=== PATIENT | female | born 1935 | race Caucasian/White ===

== ENCOUNTER 2021-05-30 12:37 | Emergency (ER) | payer OTHER, MEDICARE ==
[2021-05-30] MEDS ORDERED: LIDOCAINE VISCOUS 2% SOLN 15 ML UDC ONE (14:54)
[2021-05-30] MEDS ORDERED: TRAMADOL HCL 50 MG TAB ONE (14:58)
--- NOTE | 2021-05-30 15:43 | ER ---
Nurse's Notes [facility] Name: Sherrie Cespedes Age: 86 yrs Sex: Female : 1935 Arrival Date: 05/30/2021 Time: 12:40 Bed 9 Private MD: Diagnosis: Skintear to left izaguirre Presentation: 05/30 13:49 Chief complaint: Patient states: Slipped off step of a curing pickling packer which caused the step to ss skin the top of her izaguirre. No active bleeding noted at this time. Coronavirus screen: Client denies travel out of the [place] in the last 14 days. Ebola Screen: Patient denies exposure to infectious person. Patient denies travel to an Ebola-affected area in the 21 days before illness onset. Complicating Factors: There are no complicating factors for this patient. Initial Sepsis Screen: Does the patient meet any 2 criteria? No. Patient's initial sepsis screen is negative. Does the patient have a suspected source of infection? No. Patient's initial sepsis screen is negative. Risk Assessment: Do you want to hurt yourself or someone else? Patient reports no desire to harm self or others. Onset of symptoms was May 30, 2021. 13:49 Method Of Arrival: Wheelchair ss 13:49 Acuity: ANDRIY 2 ss Historical: - Allergies: 13:51 No Known Allergies; ss - PMHx: 13:51 Hypertensive disorder; ss - Immunization history:: Client reports receiving the 2nd dose of the Covid vaccine, Last tetanus immunization: up to date. - Social history:: Smoking status: Patient/guardian denies using tobacco, the patient reports quitting approximately 30 years ago. Screenin:04 Abuse screen: Denies threats or abuse. Denies injuries from another. Nutritional jl7 screening: No deficits noted. Tuberculosis screening: Never had TB. Assessment: 15:00 Injury Description: Large, 10 cm skin tear noted to L izaguirre. No active bleeding noted at jl7 this time. 15:01 General: Appears in no apparent distress. comfortable, Behavior is calm, cooperative. jl7 Pain: Complains of pain in left izaguirre Pain currently is 10 out of 10 on a pain scale. Quality of pain is described as burning, tender, Pain began 2 hours ago. Is continuous. Neuro: Level of Consciousness is awake, alert, obeys commands, Oriented to person, place, time, situation. Cardiovascular: Capillary refill < 3 seconds is brisk in bilateral fingers Patient's skin is warm and dry. Respiratory: Airway is patent Respiratory effort is even, unlabored, Respiratory pattern is regular, symmetrical. GI: No signs and/or symptoms were reported involving the gastrointestinal system. EENT: Oral mucosa is moist. Derm: Bruising that is dark purple, on left izaguirre. Musculoskeletal: Circulation, motion, and sensation intact. Swelling absent. Vital Signs: 13:49 BP 206 / 109; Pulse 62; Resp 16; Temp 97.5(TE); Pulse Ox 97% on R/A; Weight 59.42 kg; ss Height 5 ft. 4 in. (162.56 cm); Pain 10/10; 13:51 BP 203 / 103; ss 13:49 Body Mass Index 22.49 (59.42 kg, 162.56 cm) ED Course: 12:40 Patient arrived in ED. ds1 13:51 Triage completed. ss 13:51 Arm band placed on right wrist. 14:45 Tacho Wilburn RN is Primary Nurse. jl7 14:48 Trisha Ramirez FNP-C is PHCP. kb 14:48 Vance Qiu MD is Attending Physician. kb 15:30 Wound care: to LARGE 10CM SKIN TARE. kj1 15:30 Dressings: Kerlix X 2; right leg non-adherent dressing x 2 right leg and left leg. kj1 Administered Medications: 15:00 Drug: traMADol 50 mg Route: PO; jl7 15:00 Drug: Viscous Lidocaine Liquid (4 %) 10 ml {Note: placed to wound as ordered.} Route: jl7 Mucous Membrane; Outcome: 15:42 Discharge ordered by MD. kb 16:09 Patient left the ED. Signatures: Trisha Ramirez FNP-C [employer]INE [employer] TECHNICIAN-Haily Thibodeaux ds1 Missy Mora RN RN Tacho Wilburn RN RN jl7 Bela Ramirez kj1 Corrections: (The following items were deleted from the chart) 15:36 15:34 Dressings: Kerlix X 2; right leg non-adherent dressing x 2 right leg and left leg kj1 kj1
--- NOTE | 2021-05-30 15:43 | EDPHYS ---
Physician Documentation [facility] Name: Sherrie Cespedes Age: 86 yrs Sex: Female : 1935 Arrival Date: 05/30/2021 Time: 12:40 Bed 9 Private MD: ED Physician Vance Qiu HPI: 05/30 23:15 This 86 yrs old Female presents to ER via Wheelchair with complaints of Laceration To kb Leg. 23:15 The patient has a laceration related to: put foot up on truck and it slid off causing kb skin tear to left izaguirre occurred outdoors, and there are no complicating factors. The injury was accidental. The laceration(s) is(are) located on the left izaguirre. Onset: The symptoms/episode began/occurred today. Associated signs and symptoms: The patient has no apparent associated signs or symptoms. The patient has not experienced similar symptoms in the past. The patient has not recently seen a physician. Historical: - Allergies: 13:51 No Known Allergies; ss - PMHx: 13:51 Hypertensive disorder; ss - Immunization history:: Client reports receiving the 2nd dose of the Covid vaccine, Last tetanus immunization: up to date. - Social history:: Smoking status: Patient/guardian denies using tobacco, the patient reports quitting approximately 30 years ago. ROS: 23:13 Constitutional: Negative for fever, chills, and weight loss. kb 23:13 Skin: Positive for of the left izaguirre, skin tear. 23:13 All other systems are negative. Exam: 23:13 Constitutional: This is a well developed, well nourished patient who is awake, alert, kb and in no acute distress. Head/Face: Normocephalic, atraumatic. ENT: Moist Mucous membranes Respiratory: Respirations even and unlabored. No increased work of breathing. Talking in full sentences MS/ Extremity: Pulses equal, no cyanosis. Neurovascular intact. Full, normal range of motion. Neuro: Awake and alert, GCS 15, oriented to person, place, time, and situation. Moves all extremities. Normal gait. Psych: Awake, alert, with orientation to person, place and time. Behavior, mood, and affect are within normal limits. 23:13 Skin: 10cm skin tear noted to left izaguirre. Vital Signs: 13:49 BP 206 / 109; Pulse 62; Resp 16; Temp 97.5(TE); Pulse Ox 97% on R/A; Weight 59.42 kg; ss Height 5 ft. 4 in. (162.56 cm); Pain 10/10; 13:51 BP 203 / 103; ss 13:49 Body Mass Index 22.49 (59.42 kg, 162.56 cm) ss MDM: 14:48 Patient medically screened. kb 23:13 Data reviewed: vital signs, nurses notes. Data interpreted: Pulse oximetry: on room air kb is 97 %. Interpretation: normal. Counseling: I had a detailed discussion with the patient and/or guardian regarding: the historical points, exam findings, and any diagnostic results supporting the discharge/admit diagnosis, the need for outpatient follow up, a family practitioner, to return to the emergency department if symptoms worsen or persist or if there are any questions or concerns that arise at home. Administered Medications: 15:00 Drug: traMADol 50 mg Route: PO; jl7 15:00 Drug: Viscous Lidocaine Liquid (4 %) 10 ml {Note: placed to wound as ordered.} Route: jl7 Mucous Membrane; Disposition Summary: 05/30/21 15:42 Discharge Ordered Location: Home kb Condition: Stable kb Diagnosis - Skintear to left izaguirre kb Followup: kb - With: Emergency Department - When: As needed - Reason: Worsening of condition Followup: kb - With: Private Physician - When: 2 - 3 days - Reason: Recheck today's complaints, Continuance of care, Re-evaluation by your physician Discharge Instructions: - Discharge Summary Sheet kb - Skin Tear, [id number] kb Forms: - Medication Reconciliation Form kb - Thank You Letter kb - Antibiotic Education kb - Prescription Opioid Use kb Addendum: 06/04/2021 13:09 Co-signature as Attending Physician, Vance Qiu MD I agree with the assessment and k dr plan of care. Signatures: Trisha Ramirez, CIRCULAR SAWYER HELPER-C CIRCULAR SAWYER HELPER-Vance Leon MD MD [facility] Missy Mora RN RN Tacho Wilburn RN RN jl7
[2021-05-30 16:35] VITALS: TEMP 97.5; O2SAT 97
[2021-05-30 16:36] VITALS: BP 203/103
== END 2021-05-30 16:09 | disposition home or self-care (01) ==
LOC: ER 12:37
DX: S81.812A Laceration without foreign body, left lower leg, initial encounter (principal); W26.8XXA Contact with other sharp object(s), not elsewhere classified, initial encounter; I10 Essential (primary) hypertension
CPT/HCPCS: 99283